=== PATIENT | female | born 1980 | race Caucasian/White ===

== ENCOUNTER 2022-03-20 04:53 | Emergency (ER) | payer BC ==
[~2022-03-20] VITALS: Ht 175.3 cm; Wt 72.6 kg
--- NOTE | 2022-03-20 05:30 | NUR ---
BIBS C/O CHEST TIGHTNESS THAT WOKE HER FROM SLEEP, UNABLE TO SCAL E PAIN BUT INCREASES ON RESPIRATION AND IS CONSTANT. AWAKE AND ALERTX 4 BREATHING EVEN AND UNLABORED. 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
--- NOTE | 2022-03-20 05:35 | NUR ---
EMT AT BEDSIDE FOR EKG
--- NOTE | 2022-03-20 05:41 | NUR ---
20G IV ESTABLISHED AT . BLOOD DRAWN AND SENT TO LAB
[2022-03-20 05:44] LABS: BASOPHILS # (AUTO) 0.1 K/uL (0.0-0.2); EOSINOPHILS % (AUTO) 1.1 % (0.0-6.0); HEMATOCRIT 42 % (33-45); HEMOGLOBIN 13.9 g/dL (11.5-14.8); LYMPHOCYTES # (AUTO) 1.4 K/uL (0.8-4.8); LYMPHOCYTES % (AUTO) 16.4 % (20.0-44.0); MEAN CORPUSCULAR HGB CONC 33 g/dl (31.0-36.0); MEAN CORPUSCULAR VOLUME 89 fL (82-100); MONOCYTES # (AUTO) 0.9 K/uL (0.1-1.30); MONOCYTES % (AUTO) 9.9 % (2.0-12.0); NEUTROPHILS # (AUTO) 6.3 K/uL (1.8-8.9); NEUTROPHILS % (AUTO) 71.6 % (43.0-81.0); PLATELET COUNT (AUTO) 273 K/uL (150-450); WHITE BLOOD COUNT (AUTO) 8.7 K/uL (4.3-11.0)
--- NOTE | 2022-03-20 05:51 | NUR ---
XRAY AT BEDSIDE
[2022-03-20 05:55] LABS: CALCIUM, SERUM 9.1 mg/dL (8.5-10.1); CARBON DIOXIDE 26 mmol/L (21-32); CHLORIDE 103 mmol/L (98-107); GLUCOSE 100 mg/dL (74-106); POTASSIUM 4.2 mmol/L (3.5-5.1); SODIUM SERUM 139 mmol/L (136-145); UREA NITROGEN, BLOOD 19 mg/dL (7-18)
[2022-03-20] MEDS ORDERED: LIDOCAINE VISCOUS 2% UD 15 ML UDC MM ONE (06:30)
[2022-03-20] MEDS ORDERED: MAG HYDROX/AL HYDROX/SIMETH 30 ML UDC PO ONE (06:30)
[2022-03-20] MEDS ORDERED: ACETAMINOPHEN ES 500 MG TABLET PO ONE (06:30)
[2022-03-20] MEDS ORDERED: ACETAMINOPHEN ES 500 MG TABLET ONE (06:31)
[2022-03-20] MEDS ORDERED: MAG HYDROX/AL HYDROX/SIMETH 30 ML UDC ONE (06:31)
[2022-03-20] MEDS ORDERED: LIDOCAINE VISCOUS 2% UD 15 ML UDC ONE (06:31)
[2022-03-20] MEDS ORDERED: FAMO20TA8 PO (07:05)
[2022-03-20] MEDS ORDERED: AZIT250T13 PO (07:05)
--- NOTE | 2022-03-20 07:28 | NUR ---
Patient discharged to home in stable condition. Written and verbal after care instructions given. Patient verbalizes understanding of instruction.IV removed. Catheter intact and site benign. Pressure and 4x4 applied to site. No bleeding noted.
[2022-03-20 07:29] VITALS: BP 109/74
== END 2022-03-20 07:29 | disposition home or self-care (01) ==
LOC: ER 05:12
DX: R07.89 Other chest pain (principal); J18.9 Pneumonia, unspecified organism; Z79.899 Other long term (current) drug therapy
CPT/HCPCS: 36415; 71045-TC; 80048-TC; 84484-TC; 85025-TC